=== PATIENT | female | born 1960 | race American Indian/Alaskan Native ===

== ENCOUNTER 2020-02-04 12:34 | Outpatient (CLI) | payer BC ==
--- NOTE | 2020-02-04 14:25 | Mammography Report ---
DIGITAL SCREENING MAMMOGRAM WITH CAD, 02/04/2020 CLINICAL INFORMATION / INDICATION: Routine screening mammography. TECHNIQUE: Digital bilateral 2D mammography was obtained in the craniocaudal and mediolateral obliqu e projections. This examination was interpreted with the benefit of Computer-Aided Detection analysis . COMPARISON: 12/17/2017 FINDINGS: Breast Density: The breasts are extremely dense, which lowers the sensitivity of mammography. No dominant mass, suspicious calcifications, or architectural distortion in either breast. No interval change. IMPRESSION: No mammographic evidence of malignancy. Follow up recommendation: Routine yearly BI-RADS Category 1: Negative. A "normal" or negative report should not discourage follow up or biopsy of a clinically significant f inding. A written summary of these findings will be mailed to the patient. The patient will be entered into a mammography reporting system which will generate a reminder letter for the patient's next appointmen t at the appropriate interval. The [employer] recommends yearly mammograms starting at age 40 and continuing as l zeke as a woman is in good health. Breast MRI is recommended for women with an approximate 20-25% or greater lifetime risk of breast cancer, including women with a strong family history of breast or ova chencho cancer or who have been treated for Hodgkin's disease. Signer Name: Tiara Albright MD Signed: 02/04/2020 2:21 PM Workstation Name: [id number]
== END 2020-02-04 12:35 | disposition home or self-care (01) ==
LOC: SPVWC 12:34
PROVIDERS: ATTEND Surgery
DX: Z12.31 Encounter for screening mammogram for malignant neoplasm of breast (principal)
CPT/HCPCS: 77067

== ENCOUNTER 2021-08-10 09:43 | Outpatient (CLI) | payer BC ==
--- NOTE | 2021-08-10 12:34 | Mammography Report ---
DEXA BONE DENSITY SCAN INDICATION: MENOPAUSAL SYNDROME/OSTEOPENIA, post-menopausal COMPARISON: 12/08/2016 LUMBAR SPINE (L1-L4): Bone mineral density (BMD) is 0.923 g/cm2, previously 0.834. T-score is -2.1 (standard deviations of Young Adult mean), previously -1.9. LEFT FEMORAL NECK: Bone mineral density (BMD) is 0.709 g/cm2, previously 0.670. T-score is -1.7 (standard deviations of Young Adult mean), previously -1.1. IMPRESSION: 1. WHO Classification: Osteopenia. Fracture Risk: Increased. Signer Name: Christiano Hairston MD Signed: 08/10/2021 12:29 PM Workstation Name: [id number]
== END 2021-08-10 09:44 | disposition home or self-care (01) ==
LOC: SPVWC 09:43
PROVIDERS: ATTEND Obstetrics & Gynecology
DX: M85.88 Other specified disorders of bone density and structure, other site (principal); N95.1 Menopausal and female climacteric states
CPT/HCPCS: 77080